=== PATIENT | male | born 1975 | race African-American/Black ===

== ENCOUNTER 2022-11-12 10:57 | Emergency (ER) | payer SELFPAY ==
[~2022-11-12] VITALS: Ht 177.8 cm; Wt 82.0 kg
[2022-11-12 11:02] VITALS: TEMP 98.9; O2SAT 100
[2022-11-12 11:45] VITALS: BP 151/103; PULSE 96; RESP 20
[2022-11-12] MEDS ORDERED: ACETAMINOPHEN 325MG TABLET PO ONE (11:45)
[2022-11-12] MEDS ORDERED: GABAPENTIN 300MG CAPSULE PO ONE (11:45)
[2022-11-12] MEDS ORDERED: KETOROLAC 30MG/ML VIAL IM ONE (11:45)
[2022-11-12] MEDS ORDERED: CYCLOBENZAPRINE 10MG TABLET PO ONE (12:00)
[2022-11-12] MEDS ORDERED: IBUP-2029 MT (12:27)
[2022-11-12] MEDS ORDERED: METH-653 MT (12:27)
== END 2022-11-12 12:45 | disposition home or self-care (01) ==
LOC: ER 11:10
DX: M54.41 Lumbago with sciatica, right side (principal); F41.9 Anxiety disorder, unspecified
CPT/HCPCS: 96372; 99284; J1885; Z7610